=== PATIENT | female | born 1965 | race Caucasian/White ===

== ENCOUNTER 2018-05-07 13:56 | Outpatient (CLI) | payer BC ==
--- NOTE | 2018-05-09 13:06 | MMO ---
BILATERAL MAMMOGRAMS: DATE: 05/07/18 HISTORY: Screening mammography. COMPARISON: 04/23/15. FINDINGS: Scattered fibroglandular densities. Intramammary lymph nodes are stable. No new dominant mass or susp icious calcifications. The study was evaluated with the assistance of computer-aided detection. IMPRESSION: BIRADS 2: Benign Finding(s) Suggest routine follow-up. POS: SCOTT
== END 2018-05-07 13:57 | disposition home or self-care (01) ==
LOC: SCSMAMMO 13:56
PROVIDERS: ATTEND Family Medicine
DX: Z12.31 Encounter for screening mammogram for malignant neoplasm of breast (principal)
CPT/HCPCS: 77067

== ENCOUNTER 2019-05-13 15:17 | Outpatient (CLI) | payer BC ==
--- NOTE | 2019-05-14 15:28 | MMO ---
Bilateral MAMMO Bilat Screen [facility]. CLINICAL HISTORY: Patient is 53 years old and is seen for screening. The patient has the following family history of breast cancer: paternal grandmother and sister, at age 42. The patient has no personal history of cancer. VIEWS: The views performed were: bilateral craniocaudal and bilateral mediolateral oblique. FILMS COMPARED: The present examination has been compared to prior imaging studies performed at [facility] on 05/07/2018, and at [facility] on 04/23/2015, 04/24/2016 and 05/02/2017. This study has been interpreted with the assistance of computer-aided detection. MAMMOGRAM FINDINGS: There are scattered fibroglandular densities. Benign densities and lymph nodes both breasts. There are no suspicious masses, suspicious calcifications, or new areas of architectural distortion. IMPRESSION: THERE IS NO MAMMOGRAPHIC EVIDENCE OF MALIGNANCY. A ROUTINE FOLLOW-UP MAMMOGRAM IN 1 YEAR IS RECOMMENDED. ACR BI-RADS Category 2 - Benign finding MAMMOGRAPHY NOTE: 1. A negative mammogram report should not delay a biopsy if a dominant of clinically suspicious mass is present. 2. Approximately 10% to 15% of breast cancers are not detected by mammography. 3. Adenosis and dense breasts may obscure an underlying neoplasm. Reported by: XANDER MILIAN MD Electonically Signed: [id number]
== END 2019-05-13 15:18 | disposition home or self-care (01) ==
LOC: SCSMAMMO 15:17
PROVIDERS: ATTEND Family Medicine
DX: Z12.31 Encounter for screening mammogram for malignant neoplasm of breast (principal); Z80.3 Family history of malignant neoplasm of breast
CPT/HCPCS: 77067

== ENCOUNTER 2020-08-05 13:47 | Outpatient (CLI) | payer BC ==
--- NOTE | 2020-08-05 19:48 | ULT ---
TRANSVAGINAL AND TRANSABDOMINAL PELVIC ULTRASOUND: 08/05/20 INDICATION: History of postmenopausal bleeding. FINDINGS: The uterus measures 7.7 x 3.6 x 3.6 cm. There is a mixed echogenicity lesion seen within the posterio r aspect of the uterine body suspicious for fibroid measuring 9.6 x 8.8 mm. The endometrial stripe is thickened measuring 1 cm. The right ovary measures 2.1 x 1.4 x 1.3 cm. the left ovary measures 1.8 x 1.2 x 1.2 cm. Normal flow to both ovaries. No free fluid is evident. IMPRESSION: 1. Thickened endometrial stripe is abnormal for a postmenopausal female. Findings may reflect en dometrial hyperplasia, polyposis or carcinoma. Recommend endometrial sampling for further evaluation. 2. Fibroid uterus. POS: BH
== END 2020-08-05 13:48 | disposition home or self-care (01) ==
LOC: BICULT 13:47
PROVIDERS: ATTEND Nurse Practitioner Family
DX: N95.0 Postmenopausal bleeding (principal); R93.89 Abnormal findings on diagnostic imaging of other specified body structures; D25.9 Leiomyoma of uterus, unspecified
CPT/HCPCS: 76856

== ENCOUNTER 2022-06-06 14:50 | Outpatient (CLI) | payer BC | END 2022-06-06 14:51 | disposition home or self-care (01) | LOC: BICMAMMO 14:50 | PROVIDERS: ATTEND Family Medicine | DX: Z12.31 Encounter for screening mammogram for malignant neoplasm of breast (principal); Z80.3 Family history of malignant neoplasm of breast | CPT/HCPCS: 77063; 77067 ==

== ENCOUNTER 2022-07-04 17:00 | Outpatient (CLI) | payer BC | END 2022-07-04 17:01 | disposition home or self-care (01) | LOC: SLEEPLAB 17:00 | PROVIDERS: ATTEND Family Medicine | DX: G47.33 Obstructive sleep apnea (adult) (pediatric) (principal); R53.83 Other fatigue; R06.83 Snoring; E11.9 Type 2 diabetes mellitus without complications; K21.9 Gastro-esophageal reflux disease without esophagitis; G47.00 Insomnia, unspecified; E66.9 Obesity, unspecified; Z68.34 Body mass index [BMI] 34.0-34.9, adult | CPT/HCPCS: 95800 ==

== ENCOUNTER 2022-07-26 12:19 | Outpatient (CLI) | payer BC | END 2022-07-26 12:20 | disposition home or self-care (01) | LOC: TBSIIMAG 12:19 | PROVIDERS: ATTEND Family Medicine | DX: M23.91 Unspecified internal derangement of right knee (principal); S82.201A Unspecified fracture of shaft of right tibia, initial encounter for closed fracture; S83.281A Other tear of lateral meniscus, current injury, right knee, initial encounter ==

== ENCOUNTER 2022-10-19 14:44 | Outpatient (CLI) | payer BC | END 2022-10-19 14:45 | disposition home or self-care (01) | LOC: DTY/OP 14:44 | PROVIDERS: ATTEND Specialist | DX: E66.01 Morbid (severe) obesity due to excess calories (principal) | CPT/HCPCS: 97802 ==

== ENCOUNTER 2023-01-11 11:09 | Outpatient (CLI) | payer BC ==
[2023-01-11 13:15] LABS: #Basophils 0.1 10x3/uL (0.0-0.2); #Eosinphils 0.1 10x3/uL (0.0-0.5); #Monocytes 0.4 10x3/uL (0.0-1.1); #Neutrophils 4.4 10x3/uL (1.5-8.4); %Basophils 0.8 % (0.0-2.0); %Eosinophils 0.8 % (0.0-6.0); %Lymphocytes 22.5 % (18.0-47.0); %Monocytes 6.4 % (0.0-10.0); %Neutrophils 69.3 % (40.0-75.0); Hemoglobin 13.2 g/dL (12.0-15.5); Mean Corpuscular HGB CONC 31.1 g/dL (32.0-36.0); Mean Corpuscular Hemoglobin 27.7 pg (27.0-33.0); Mean Corpuscular Volume 89.1 fl (81.6-98.3); Mean Platelet Volume 11.4 fl (7.4-10.4); Platelet Count 234 10x3/uL (150-450); RBC Distribution Width 13.9 % (11.5-14.5); Red Blood Cell (RBC) Count 4.76 10x6/uL (3.90-5.03); White Blood Cell (WBC) Count 6.4 10x3/uL (3.5-10.5)
[2023-01-11 13:35] LABS: Anion Gap 16 mmol/L (10-20); BUN (Urea Nitrogen) 15 mg/dL (9.8-20.1); Calc. Creatinine Clearance 0 mL/min (70-130); Calcium 10.4 mg/dL (7.8-10.44); Carbon Dioxide 21 mmol/L (22-29); Chloride 109 mmol/L (98-107); Estimated GFR 79; Glucose 162 mg/dL (70-105); Potassium 4.6 mmol/L (3.5-5.1); Sodium 141 mmol/L (136-145)
[2023-01-11 16:41] LABS: Hemoglobin A1c 5.5 % (4.0-6.0)
== END 2023-01-11 11:10 | disposition home or self-care (01) ==
LOC: LABBT 11:09
PROVIDERS: ATTEND Specialist
DX: Z01.812 Encounter for preprocedural laboratory examination (principal); K21.9 Gastro-esophageal reflux disease without esophagitis; E78.5 Hyperlipidemia, unspecified; G47.33 Obstructive sleep apnea (adult) (pediatric); E66.01 Morbid (severe) obesity due to excess calories; E11.9 Type 2 diabetes mellitus without complications
CPT/HCPCS: 80048; 83036; 85025

== ENCOUNTER 2023-01-11 15:15 | Inpatient (IN) | payer BC ==
[2023-01-15] MEDS ORDERED: Ketorolac Tromethamine 30 MG/ML VIAL ONE (07:13)
[2023-01-15] MEDS ORDERED: Scopolamine 1.5 mg/72 hour Patch ONE (07:13)
[2023-01-15] MEDS ORDERED: Acetaminophen 500 MG TAB ONE (07:13)
[2023-01-15] MEDS ORDERED: Heparin 5,000 UNITS/ML VIAL ONE (07:13)
[2023-01-15 08:16] LABS: SARS-CoV-2 NAA Rapid Test Not Detected (NotDetected)
[2023-01-15] MEDS ORDERED: Bupivacaine/Epinephrine 0.25% 30 ML VIAL ONE (08:46)
[2023-01-15] MEDS ORDERED: Fentanyl 250 MCG/5 ML VIAL ONE ×2 (08:48→11:45)
[2023-01-15] MEDS ORDERED: cefOXitin 2 GM VIAL ONE (08:52)
[2023-01-15] MEDS ORDERED: Sodium Chloride 0.9% 100 ML ONE (08:52)
[2023-01-15] MEDS ORDERED: NEOSTIGMINE 3 MG/3 ML SYR 3 MG/3 ML SYRINGE ONE (09:03)
[2023-01-15] MEDS ORDERED: Rocuronium Bromide 10 MG/ML (10ML VIAL) ONE (09:03)
[2023-01-15] MEDS ORDERED: ePHEDrine 50 MG/ML VIAL ONE (09:03)
[2023-01-15] MEDS ORDERED: Dexamethasone 20 MG/5 ML VIAL ONE (09:03)
[2023-01-15] MEDS ORDERED: PROPOFOL 200 MG/20 ML VIAL ONE (09:03)
[2023-01-15] MEDS ORDERED: Glycopyrrolate 0.2 MG/ML 5 ML SYRINGE ONE (09:03)
[2023-01-15] MEDS ORDERED: Zolpidem Tartrate 5 MG TAB PO PRN (11:12)
[2023-01-15] MEDS ORDERED: FENTANYL 500 MCG/10 ML VIAL 2,000 MCG in Sodium Chloride 0.9% 60 ML IV PRN (11:12)
[2023-01-15] MEDS ORDERED: Promethazine HCl 25 MG/ML VIAL IM PRN ×2 (11:12)
[2023-01-15] MEDS ORDERED: Ondansetron PF 4 MG/2 ML Vial IVP PRN ×2 (11:12→11:29)
[2023-01-15] MEDS ORDERED: Naloxone HCl 0.4 mg/ml Vial IV PRN (11:12)
[2023-01-15] MEDS ORDERED: diphenhydrAMINE 50 MG/ML VIAL IM PRN (11:12)
[2023-01-15] MEDS ORDERED: Ondansetron HCl/PF 4 MG/2 ML Vial IVP PRN (11:12)
[2023-01-15] MEDS ORDERED: diphenhydrAMINE 25 MG CAP PO PRN (11:12)
[2023-01-15] MEDS ORDERED: diphenhydrAMINE 50 MG/ML VIAL IVP PRN ×2 (11:12→11:29)
[2023-01-15] MEDS ORDERED: Communication Order-Pharmacy FS SCH (11:15)
[2023-01-15] MEDS ORDERED: Dextrose 5% in Water 1,000 ML IV PRN (11:29)
[2023-01-15] MEDS ORDERED: hydrALAZINE 20 MG/ML VIAL SLOW IVP PRN (11:29)
[2023-01-15] MEDS ORDERED: HumaLOG 300 UNITS/3 ML VIAL SC PRN (11:29)
[2023-01-15] MEDS ORDERED: Ipratropium/Albuterol 3 ML NEB NEB PRN (11:29)
[2023-01-15] MEDS ORDERED: Morphine 4 MG/ML VIAL SLOW IVP PRN (11:29)
[2023-01-15] MEDS ORDERED: Hydrocodone-Acetamin 15 ML UDCUP PO PRN (11:29)
[2023-01-15] MEDS ORDERED: Morphine 2 MG/ML VIAL SLOW IVP PRN (11:29)
[2023-01-15] MEDS ORDERED: Dextrose 50% Abboject 50 ML SYRINGE SLOW IVP PRN (11:29)
[2023-01-15] MEDS ORDERED: Promethazine HCl 25 MG/ML VIAL ONE (11:45)
[2023-01-15 15:53] VITALS: BMI 39.1
[2023-01-15] MEDS: Sodium Chloride 0.45% 1,000 ML IV SCH ×2 (16:41→23:51)
[2023-01-15] MEDS: Ketorolac Tromethamine 30 MG/ML VIAL IVP SCH ×3 (16:42→23:51)
[2023-01-16] MEDS ORDERED: Levothyroxine Sodium 50 MCG TAB PO SCH (06:00)
[2023-01-16] MEDS: Ketorolac Tromethamine 30 MG/ML VIAL IVP SCH ×2 (06:01→11:09)
[2023-01-16 07:13] LABS: #Lymphocytes 1.2 thou/uL (1.20-3.40); #Monocytes 0.9 thou/uL (0.11-0.59); #Neutrophils 14.5 thou/uL (1.40-6.50); %Basophils 0.1 % (0.0-1.0); %Eosinophils 0.1 % (0.0-10.0); %Lymphocytes 7.4 % (21.0-51.0); %Monocytes 5.1 % (0.0-10.0); %Neutrophils 87.3 % (42.0-75.0); Hemoglobin 11.7 g/dL (12.0-16.0); Mean Corpuscular HGB CONC 32.4 g/dL (32.0-36.0); Mean Corpuscular Hemoglobin 29.7 pg (27.0-31.0); Mean Corpuscular Volume 91.9 fl (78.0-98.0); Platelet Count 202 10x3/uL (130-400); RBC Distribution Width 13.3 % (11.5-14.5); Red Blood Cell (RBC) Count 3.92 mill/uL (4.20-5.40); White Blood Cell (WBC) Count 16.6 10x3/uL (4.8-10.8)
[2023-01-16 07:35] LABS: Anion Gap 13 mmol/L (10-20); BUN (Urea Nitrogen) 13 mg/dL (9.8-20.1); Calc. Creatinine Clearance 121 mL/min (70-130); Calcium 9.9 mg/dL (7.8-10.44); Carbon Dioxide 22 mmol/L (22-29); Chloride 108 mmol/L (98-107); Estimated GFR 90; Glucose 121 mg/dL (70-105); Potassium 4.4 mmol/L (3.5-5.1); Sodium 139 mmol/L (136-145)
[2023-01-16] MEDS: Sodium Chloride 0.45% 1,000 ML IV SCH (07:49)
[2023-01-16] MEDS ORDERED: Pantoprazole 40 MG VIAL IVP SCH (09:00)
[2023-01-16] MEDS ORDERED: Sertraline 100 MG TAB PO SCH (09:00)
[2023-01-16] MEDS ORDERED: Aripiprazole 10 MG TAB PO SCH (09:00)
[2023-01-16] MEDS ORDERED: Hydrocodone-Acetamin 15 ML UDCUP PO PRN (10:07)
[2023-01-16 11:27] VITALS: TEMP 97.8
[2023-01-16 11:29] VITALS: BP 150/81
== END 2023-01-16 12:30 | disposition home or self-care (01) | DRG 621 ==
LOC: SURG A 01-15 06:49 → SURG B 01-15 13:14
PROVIDERS: ADMIT Specialist; ATTEND Specialist
PROC: 0D164ZA Bypass Stomach to Jejunum, Percutaneous Endoscopic Approach (ICD-10-PCS; principal; 2023-01-15)
DX: E66.01 Morbid (severe) obesity due to excess calories (principal); I10 Essential (primary) hypertension; Z20.822 Contact with and (suspected) exposure to COVID-19; K21.9 Gastro-esophageal reflux disease without esophagitis; E03.9 Hypothyroidism, unspecified; F31.9 Bipolar disorder, unspecified; F41.9 Anxiety disorder, unspecified; E11.9 Type 2 diabetes mellitus without complications; Z79.84 Long term (current) use of oral hypoglycemic drugs; Z79.4 Long term (current) use of insulin; Z79.890 Hormone replacement therapy; Z68.39 Body mass index [BMI] 39.0-39.9, adult
CPT/HCPCS: 36415; 36416; 80048; 85025; 94760; A4649; C1889; C9113; J0694; J1100; J1644; J1650; J1815; J1885; J2550; J2704; J3010; J3490; U0002

== ENCOUNTER 2023-06-14 14:23 | Day surgery (SDC) | payer BC ==
[2023-06-14] MEDS ORDERED: Ondansetron PF 4 MG/2 ML Vial IVP PRN (14:35)
[2023-06-14] MEDS ORDERED: Sodium Chloride 0.9% 1,000 ML IV SCH (14:45)
[2023-06-14 14:50] VITALS: TEMP 98
[2023-06-14] MEDS ORDERED: Multivitamins, Adult 10 ML, Thiamine HCl 100 MG in Sodium Chloride 0.9% 1,000 ML IV SCH (15:00)
[2023-06-14 17:16] VITALS: BP 182/77
== END 2023-06-14 17:20 | disposition home or self-care (01) ==
LOC: ONC/OP 14:23
PROVIDERS: ATTEND Specialist
DX: E86.0 Dehydration (principal)
CPT/HCPCS: 96361; 96365; 96366; J3411; J7050

== ENCOUNTER 2023-06-26 14:36 | Outpatient (CLI) | payer BC | END 2023-06-26 14:37 | disposition home or self-care (01) | LOC: BICMAMMO 14:36 | PROVIDERS: ATTEND Nurse Practitioner Family | DX: Z12.31 Encounter for screening mammogram for malignant neoplasm of breast (principal); Z80.3 Family history of malignant neoplasm of breast | CPT/HCPCS: 77063; 77067 ==

== ENCOUNTER 2023-07-19 12:51 | Outpatient (CLI) | payer BC ==
[2023-07-19 14:04] LABS: #Eosinphils 0.1 10x3/uL (0.0-0.5); #Monocytes 0.3 10x3/uL (0.0-1.1); #Neutrophils 3.8 10x3/uL (1.5-8.4); %Basophils 0.4 % (0.0-2.0); %Eosinophils 0.9 % (0.0-6.0); %Monocytes 5.5 % (0.0-10.0); Hematocrit 38.5 % (34.9-44.5); Hemoglobin 12.7 g/dL (12.0-15.5); Mean Corpuscular Hemoglobin 29.3 pg (27.0-33.0); Mean Corpuscular Volume 88.9 fl (81.6-98.3); Mean Platelet Volume 10.9 fl (7.4-10.4); Platelet Count 258 10x3/uL (150-450); RBC Distribution Width 13.2 % (11.5-14.5); Red Blood Cell (RBC) Count 4.33 10x6/uL (3.90-5.03); White Blood Cell (WBC) Count 5.7 10x3/uL (3.5-10.5)
[2023-07-19 14:23] LABS: ALT (SGPT) 28 U/L (8-55); AST (SGOT) 22 U/L (5-34); Albumin 4.3 g/dL (3.5-5.0); Alkaline Phosphatase 189 U/L (40-110); Anion Gap 11 mmol/L (10-20); BUN (Urea Nitrogen) 16 mg/dL (9.8-20.1); Bilirubin, Total 0.3 mg/dL (0.2-1.2); Calc. Creatinine Clearance 0 mL/min (70-130); Carbon Dioxide 27 mmol/L (22-29); Chloride 108 mmol/L (98-107); Estimated GFR 90; Globulin 2.3 g/dL (2.4-3.5); Glucose 149 mg/dL (70-105); Potassium 3.8 mmol/L (3.5-5.1); Protein, Total 6.6 g/dL (6.0-8.3); Sodium 142 mmol/L (136-145)
== END 2023-07-19 12:52 | disposition home or self-care (01) ==
LOC: LABBT 12:51
PROVIDERS: ATTEND Specialist
DX: Z01.812 Encounter for preprocedural laboratory examination (principal); K80.20 Calculus of gallbladder without cholecystitis without obstruction
CPT/HCPCS: 80053; 85025

== ENCOUNTER 2023-08-07 11:17 | Day surgery (SDC) | payer BC ==
[2023-07-19 13:23] VITALS: BMI 26.6
[2023-08-07] MEDS ORDERED: Ketorolac Tromethamine 30 MG/ML VIAL ONE (11:47)
[2023-08-07] MEDS ORDERED: Acetaminophen 500 MG TAB ONE (11:47)
[2023-08-07 12:18] LABS: #Eosinphils 0.1 thou/uL (0.0-0.7); #Monocytes 0.5 thou/uL (0.11-0.59); %Basophils 0.3 % (0.0-1.0); %Eosinophils 1.9 % (0.0-10.0); %Lymphocytes 19.5 % (21.0-51.0); %Monocytes 6.5 % (0.0-10.0); %Neutrophils 71.7 % (42.0-75.0); Hematocrit 39.8 % (36.0-47.0); Hemoglobin 13.2 g/dL (12.0-16.0); Mean Corpuscular HGB CONC 33.2 g/dL (32.0-36.0); Mean Corpuscular Volume 90.5 fl (78.0-98.0); Mean Platelet Volume 11.2 fL (7.4-10.4); Platelet Count 184 10x3/uL (130-400); RBC Distribution Width 13.3 % (11.5-14.5); White Blood Cell (WBC) Count 6.9 10x3/uL (4.8-10.8)
[2023-08-07 12:46] LABS: Anion Gap 13 mmol/L (10-20); BUN (Urea Nitrogen) 13 mg/dL (9.8-20.1); Calc. Creatinine Clearance 94 mL/min (70-130); Carbon Dioxide 22 mmol/L (22-29); Chloride 109 mmol/L (98-107); Sodium 140 mmol/L (136-145)
[2023-08-07 12:47] LABS: ALT (SGPT) 17 U/L (8-55); AST (SGOT) 16 U/L (5-34); Albumin 4.2 g/dL (3.5-5.0); Alkaline Phosphatase 202 U/L (40-110); Bilirubin, Total 0.3 mg/dL (0.2-1.2); Calcium 10.8 mg/dL (7.8-10.44); Estimated GFR 96; Globulin 2.8 g/dL (2.4-3.5); Glucose 81 mg/dL (70-105)
[2023-08-07] MEDS ORDERED: fentaNYL PF 100 MCG/2 ML SYRINGE ONE (13:35)
[2023-08-07] MEDS ORDERED: Midazolam HCl 2 mg/2 ml Vial ONE (13:35)
[2023-08-07] MEDS ORDERED: SUGAMMADEX SODIUM 200 MG/2 ML VIAL ONE (13:35)
[2023-08-07] MEDS ORDERED: HYDROmorphone 0.5 MG/0.5 ML SYRINGE ONE (13:35)
[2023-08-07] MEDS ORDERED: Bupivacaine 0.25% HCL 30 ML VIAL ONE (13:42)
[2023-08-07] MEDS ORDERED: EPINEPHrine 1 MG/ML AMP ONE (13:42)
[2023-08-07] MEDS ORDERED: Iopamidol 30 ML ONE (13:51)
[2023-08-07] MEDS ORDERED: Sodium Chloride 0.9% 100 ML ONE (14:00)
[2023-08-07] MEDS ORDERED: CEFAZOLIN 2 GM VIAL ONE (14:00)
[2023-08-07] MEDS ORDERED: PROPOFOL 200 MG/20 ML VIAL ONE (14:05)
[2023-08-07] MEDS ORDERED: Dexamethasone 20 MG/5 ML VIAL ONE (14:05)
[2023-08-07] MEDS ORDERED: Lidocaine 1% PF 5 ML VIAL ONE (14:05)
[2023-08-07] MEDS ORDERED: Rocuronium Bromide 10 MG/ML (10ML VIAL) ONE (14:05)
[2023-08-07] MEDS ORDERED: Ondansetron PF 4 MG/2 ML Vial ONE (14:05)
[2023-08-07] MEDS ORDERED: fentaNYL 50 mcg/mL 1 mL Vial ONE (16:00)
[2023-08-07] MEDS ORDERED: HYDROcodone/Acetaminophen 5/325 mg Tablet ONE (16:45)
== END 2023-08-07 17:10 | disposition home or self-care (01) ==
LOC: SDC 11:17
PROVIDERS: ATTEND Specialist
PROC: BF13YZZ Fluoroscopy of Gallbladder and Bile Ducts using Other Contrast (ICD-10-PCS; principal; 2023-08-07)
PROC: 0FT44ZZ Resection of Gallbladder, Percutaneous Endoscopic Approach (ICD-10-PCS; 2023-08-07)
DX: K80.10 Calculus of gallbladder with chronic cholecystitis without obstruction (principal); Z98.84 Bariatric surgery status
CPT/HCPCS: 47532; 80053; 85025; 88304; C1889; J0171; J1100; J1170; J1885; J2250; J2405; J2704; J3010; J3490; Q9967; S0020